=== PATIENT | male | born 1980 | race African-American/Black ===

== ENCOUNTER → 2018-01-27 17:02 | Outpatient (CLI) | payer OTHER, SELFPAY ==
--- NOTE | 2018-01-27 17:30 | MRI_ITS ---
PROCEDURE: MRI LOWER EXTREMITY LEFT TIBIA/FIBULA REASON FOR EXAM: Male, 37 years old. Pain in the left Achilles region. Injury. TECHNIQUE: Standardized fat and water weighted pulse sequences were obtained in all 3 orthogonal planes. COMPARISON: None. FINDINGS: Normal tibia and fibula, without a periosteal, cortical or cancellous marrow abnormality. Normal anterior and lateral calf compartments, with normal muscles, crural fascia and intermuscular septa. There is musculotendinous strain at the origin of the Achilles tendon, series 7 images through . There is no solid, cystic or lipomatous mass lesion of the subcutis adipose space. MRI/Lower Ext/No Jt/w/o IMPRESSION: Musculotendinous strain at the origin of the Achilles tendon. Electronically Signed: Paul Allen MD at 22:43 EDT , Service support ,
== END ==
PROVIDERS: Visit Provider Podiatrist Foot & Ankle Surgery
DX: S86.002A Unspecified injury of left Achilles tendon, initial encounter (principal); X58.XXXA Exposure to other specified factors, initial encounter; Y93.9 Activity, unspecified; Y92.9 Unspecified place or not applicable; Y99.9 Unspecified external cause status
CPT/HCPCS: 73718

== ENCOUNTER 2018-02-20 12:00 | Outpatient (RCR) | payer OTHER, SELFPAY ==
--- NOTE | 2018-02-06 10:12 | HP.PTEVAL_ITS ---
Patient's Visit Information MARY ALICE ROSARIO is a 37 year old M referred to Physical Therapy by Marino Maguire with a diagnosis of POST ACHILLES MYOTENINOUS TEAR LEFT. Date of Evaluation: 02/06/18 Physical Therapist: Ho Marie PT, - Visit Plan Frequency: 3x /Week Duration: 4 Weeks Plan: modalities as need ,FLEXABLITY G-S,PROPRIOCEPTION,STRENGTH ANKLE ECCENTRIC G-S, - Subjective Subjective: This 37 y/o male presents to physical therapy with physical therapy post achilles myoteninous tear left. Patient soreness,swelling,redness in achilles tendon January 01 with running 4 miles. Attempted to run continue for 1week then seen DR Maguire ,placed in CAM boot WBAT. Then eventually had MRI to see how heeling looked January 21 looking good with healing. Patient reports 80% better . Symptoms worse with squatting ,walking without boot at home. Denies parathesia/tingling . 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 SOCAIL: - Pain Left Foot Pain Intensity (Out of 10): 2 Pain Intensity Range: 10 Comment: left achilles - Objective POSTURE: normal arch. PALAPTION: distal 1/3 achilles tendon. EDEMA: absent. G -SOLEUS: atrophied. AROM: dorsiflexion 5 degrees from 0,plantarflexion 60 degrees,eversion 10 degrees,inversion 45 degrees. MMT: anterior tibialas 4/5, pernoneus 4/5,posterior tib 4/5,gastrosoleus 4/5. GAIT: normal sebastián reciprocal pattern slight decrease stance,heel strike to off. NEURO: inact. PROPRIOCEPTION: INACT. SPECIAL TEST : -sanchez - Goals Goal 1:: Independant with HEP. Goal Time Frame: 4-6 Weeks Goal 2:: Noramilze gait community distance to RTW. Goal Time Frame: 4-6 Weeks Goal 3:: Increase strength left G-S and ankle to 5/5 to RTW as State Tropoer Goal Time Frame: 4-6 Weeks Goal 4:: Patient improve AROM /G-S flexablity WL left to right for gait TO NORMALIZE GAIT Goal Time Frame: 4-6 Weeks Goal 5:: Patient be to RTW with Hourly Sign Language Interpreter without limitations Goal Time Frame: 4-6 Weeks - Rehabilitation Potential Physical Therapy Diagnosis: Patient developed left achilles pain with jogging seen DR had MRI showed heeling but has weakness ,ROM loss,gait unable to RTW as state tropper possible in February 23 per MD Rehabilitation Potential: Good - Anticipated Interventions Patient/Client Instruction: Educate patient on: Condition, Plan of Care For the Purpose of:: To decrease pain, To increase ROM, To improve muscle performance and motor function, To improve ability to perform ADL's, To increase tolerance to activity/condition/position, To improve ability of physical actions for home/community/work/leisure, To improve health of tissue, To decrease soft tissue restriction, To increase flexibility/ROM, To improve endurance, To improve balance, To reduce risk of recurrence, To improve health and function, To improve ability to perform tasks related to life management Therapeutic Exercise to Include: Strength training, Endurance training, Balance training, Flexibilty training, Passive ROM, Active ROM For the Purpose of:: To decrease pain, To increase ROM, To improve muscle performance and motor function, To increase tolerance to activity/condition/ position, To improve ability of physical actions for home/community/work/leisure , To improve gait and locomotor functions, To improve health of tissue, To decrease soft tissue restriction, To increase flexibility/ROM, To improve endurance, To improve ability to perform tasks related to life management TENS: Yes IF ES: Yes Cryotherapy (ice pack, ice massage): Yes Thermo therapy (hot pack): Yes Ultrasound (thermal/non thermal): Yes For the Purpose of:: To decrease pain, To decrease swelling/inflammation, To increase ROM, To improve nutrient delivery to tissue, To increase oxygenation perfusion, To decrease soft tissue restriction, To increase flexibility/ROM Thank you for the opportunity to evaluate your patient. For Medicare and Medicare HMO plans, please review the plan of care and approve it. It will need to be FAXED BACK to us at [phone] for Medicare purposes. Please let me know if there are questions or concerns regarding this plan of care. Physician Signature: Date:
--- NOTE | 2018-02-06 10:20 | HP.PTEVAL ---
Patient's Visit Information MARY ALICE ROSARIO is a 37 year old M referred to Physical Therapy by Marino Maguire with a diagnosis of POST ACHILLES MYOTENINOUS TEAR LEFT. Date of Evaluation: 02/06/18 Physical Therapist: Ho Marie PT, - Visit Plan Frequency: 3x /Week Duration: 4 Weeks Plan: modalities as need ,FLEXABLITY G-S,PROPRIOCEPTION,STRENGTH ANKLE ECCENTRIC G-S,. WEAN OUT OF BOOT CAM TO RTW IN FEBRUARY 23 - Subjective Subjective: This 37 y/o male presents to physical therapy with physical therapy post achilles myoteninous tear left. Patient soreness,swelling,redness in achilles tendon January 01 with running 4 miles. Attempted to run continue for 1week then seen DR Maguire ,placed in CAM boot WBAT. Then eventually had MRI to see how heeling looked January 21 looking good with healing. Patient reports 80% better . Symptoms worse with squatting ,walking without boot at home. Denies parathesia/tingling . 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 SOCAIL: - Pain Left Foot Pain Intensity (Out of 10): 2 Pain Intensity Range: 10 Comment: left achilles - Objective POSTURE: normal arch. PALAPTION: distal 1/3 achilles tendon. EDEMA: absent. G-SOLEUS: atrophied. AROM: dorsiflexion 5 degrees from 0,plantarflexion 60 degrees,eversion 10 degrees,inversion 45 degrees. MMT: anterior tibialas 4/5,pernoneus 4/5,posterior tib 4/5,gastrosoleus 4/5. GAIT: normal sebastián reciprocal pattern slight decrease stance,heel strike to off. NEURO: inact. PROPRIOCEPTION: INACT. SPECIAL TEST : -sanchez - Goals Goal 1:: Independant with HEP. Goal Time Frame: 4-6 Weeks Goal 2:: Noramilze gait community distance to RTW. Goal Time Frame: 4-6 Weeks Goal 3:: Increase strength left G-S and ankle to 5/5 to RTW as State Tropoer Goal Time Frame: 4-6 Weeks Goal 4:: Patient improve AROM /G-S flexablity WL left to right for gait TO NORMALIZE GAIT Goal Time Frame: 4-6 Weeks Goal 5:: Patient be to RTW with Research Professor Of Biostatistics without limitations Goal Time Frame: 4-6 Weeks - Rehabilitation Potential Physical Therapy Diagnosis: Patient developed left achilles pain with jogging seen had MRI showed heeling but has weakness ,ROM loss,gait unable to RTW as state tropper possible in February 23 per MD Rehabilitation Potential: Good - Anticipated Interventions Patient/Client Instruction: Educate patient on: Condition, Plan of Care For the Purpose of:: To decrease pain, To increase ROM, To improve muscle performance and motor function, To improve ability to perform ADL's, To increase tolerance to activity/condition/position, To improve ability of physical actions for home/community/work/leisure, To improve health of tissue, To decrease soft tissue restriction, To increase flexibility/ROM, To improve endurance, To improve balance, To reduce risk of recurrence, To improve health and function, To improve ability to perform tasks related to life management Therapeutic Exercise to Include: Strength training, Endurance training, Balance training, Flexibilty training, Passive ROM, Active ROM For the Purpose of:: To decrease pain, To increase ROM, To improve muscle performance and motor function, To increase tolerance to activity/condition/position, To improve ability of physical actions for home/community/work/leisure, To improve gait and locomotor functions, To improve health of tissue, To decrease soft tissue restriction, To increase flexibility/ROM, To improve endurance, To improve ability to perform tasks related to life management TENS: Yes IF ES: Yes Cryotherapy (ice pack, ice massage): Yes Thermo therapy (hot pack): Yes Ultrasound (thermal/non thermal): Yes For the Purpose of:: To decrease pain, To decrease swelling/inflammation, To increase ROM, To improve nutrient delivery to tissue, To increase oxygenation perfusion, To decrease soft tissue restriction, To increase flexibility/ROM Thank you for the opportunity to evaluate your patient. For Medicare and Medicare HMO plans, please review the plan of care and approve it. It will need to be FAXED BACK to us at [phone] for Medicare purposes. Please let me know if there are questions or concerns regarding this plan of care. Physician Signature: Date:
--- NOTE | 2018-05-29 15:57 | HP.PTDCSUM ---
HP - PT D/C Summary It has been my pleasure to treat MARY ALICE ROSARIO under orders from Marino Maguire, for the diagnosis of POST ACHILLES MYOTENINOUS TEAR LEFT for a total of 7 visit(s). Discharge Date: Please see the following information for a summary of their discharge status. - Subjective Subjective: Doing well .. See today. Ready to return to work. - Pain Left Foot Pain Intensity (Out of 10): 0 - Overall Improvement % Improvement: 80 - Objective Objective/Function: POSTURE: WFL. PALAPTION: unremarkable. NEURO: inact. GAIT: normal sebastián. MMT: 5/5 ,except G-S 4/5 with stiffness soreness. AROM: WFL G-S. PROPRIOCEPTION: intcat. FUNCTIONAL ACTIVITIES: lateral shuffle,[place],suicides ,light jogging mild soreness ,tightness - Goals Goal 1:: Independant with HEP. Goal Progress: Goal Met Goal 2:: Noramilze gait community distance to RTW. Goal Progress: Goal Met Goal 3:: Increase strength left G-S and ankle to 5/5 to RTW as State Tropoer Goal Progress: Goal Met Goal 4:: Patient improve AROM /G-S flexablity WL left to right for gait TO NORMALIZE GAIT Goal Progress: Goal Met Goal 5:: Patient be to RTW with Professional Programmer Analyst without limitations Goal Progress: Progressing - Plan Plan: RTD , D/C - D/C Information If there are questions or concerns regarding this patient's physical therapy, please feel free to call me at [phone]. Thank you for the referral of this patient. Sincerely, Ho Marie, PT,
== END 2018-02-20 19:00 | disposition home or self-care (01) ==
LOC: PT 12:00
PROVIDERS: Visit Provider Podiatrist Foot & Ankle Surgery
DX: S86.012D Strain of left Achilles tendon, subsequent encounter (principal)
CPT/HCPCS: 97110; 97162